=== PATIENT | male | born 1985 | race Asian ===

== ENCOUNTER 2023-07-31 12:14 | Emergency (ER) | payer SELFPAY ==
[2023-07-31 12:16] VITALS: BP 138/106
--- NOTE | 2023-07-31 12:40 | ED.GENMED ---
History of Present Illness
<Liliana Vail PA-C - Last Filed: 07/31/23 21:19>
General
Chief Complaint: Skin Surface Trauma
Source: patient
Exam Limitations: none
Time Seen by Provider: 07/31/23 12:39
Nursing documentation reviewed up to this point in time: agreed with
Travel History
Have you had any contact with someone who has COVID-19?: No
Do you have any symptoms of coronavirus? Fever > 100 degrees, chills, cough, shortness of breath, sore throat, loss of taste or smell, muscle aches, or headache?: No
History of Present Illness
History of Present Illness:
38-year-old male with past medical history of alcohol use disorder presenting to the emergency department today with left elbow pain after falling out of bed. States that initially after fall, he had no pain and felt well. He states that he then
started to notice pain two days later. He also states that his elbow has been red and swollen and draining white material. Patient states that any movement of his arm makes the pain worse. He denies fevers or chills, nausea or vomiting.
Past History
<Liliana Vail PA-C - Last Filed: 07/31/23 21:19>
Past History
ED Past Medical History: Seizures and Other (Chronic alcohol abuse, Pancreatitis,)
ED Past Surgical History: None
Social History
Tobacco: Non-smoker
Alcohol: Binge drinker
Drug: None
Personal: Single
Living: with family
Employment: Not employed
Family History
Family History: Unable to obtain
Review of Systems
<Liliana Vail PA-C - Last Filed: 07/31/23 21:19>
Review of Systems
All Other Systems: ROS reviewed and negative except as documented in HPI and ROS
Phy Exam
<Liliana Vail PA-C - Last Filed: 07/31/23 21:19>
Physical Exam
Physical Exam:
Vitals: vital signs stable
General: patient is well appearing and is in no acute distress
Skin: warm and dry, 2.5 cm palpable abscess with induration located just distal to the left olecranon process
Peripheral Vascular: intact left radial and ulnar pulses, cap refill <2 seconds in left upper extremity
Cardiac: regular rate
Pulm: normal respiratory effort
Musculoskeletal: patient has full range of motion of b/l upper extremities
Course
<Liliana Vail PA-C - Last Filed: 07/31/23 21:19>
Orders/Labs/Results
Orders:
Orders
07/31/23 13:27
Ibuprofen [Motrin] 600 mg PO NOW STA
07/31/23 13:34
Ibuprofen [Motrin] 600 mg .ROUTE .STK-MED ONE
Vital Signs
Initial and Last Documented VS:
Initial Vital Signs
Temp Pulse Resp BP Pulse Ox
98.0 F 95 18 138/106 99
07/31/23 12:16 07/31/23 12:16 07/31/23 12:16 07/31/23 12:16 07/31/23 12:16
Last Documented Vital Signs
Temp Pulse Resp BP Pulse Ox
98.0 F 95 18 138/106 99
07/31/23 12:16 07/31/23 12:16 07/31/23 12:16 07/31/23 12:16 07/31/23 12:16
<Stone Logan DO - Last Filed: 07/31/23 13:38>
Orders/Labs/Results
Orders:
Orders
07/31/23 13:27
Ibuprofen [Motrin] 600 mg PO NOW STA
07/31/23 13:34
Ibuprofen [Motrin] 600 mg .ROUTE .STK-MED ONE
Vital Signs
Initial and Last Documented VS:
Initial Vital Signs
Temp Pulse Resp BP Pulse Ox
98.0 F 95 18 138/106 99
07/31/23 12:16 07/31/23 12:16 07/31/23 12:16 07/31/23 12:16 07/31/23 12:16
Last Documented Vital Signs
Temp Pulse Resp BP Pulse Ox
98.0 F 95 18 138/106 99
07/31/23 12:16 07/31/23 12:16 07/31/23 12:16 07/31/23 12:16 07/31/23 12:16
Procedures
<Liliana Vail PA-C - Last Filed: 07/31/23 21:19>
Incision/Drainage/Joint Aspiration
Left Arm:
Anethesia: 1% Lidocaine with Epi
Preparation: cleaned with Betadine
Type of procedure: incise and drain
Nature of site: abscess
Description of abscess: less than 3cm, involved incision and drainage
How much fluid was obtained?: scant amount
Fluid description: purulent and bloody
Treatment: left open for drainage and bandaid applied
<THOMAS Dumont Last Filed: 07/31/23 21:19>
MDM/Problems Addressed
Differential Diagnosis Includes:
ddx simple cutaneous abscess/folliculitis, cellulitis, erysipelas,
MDM/Problems Addressed:
abscess
Chronic conditions affecting care:
alcoholism
<THOMAS Dumont Last Filed: 07/31/23 21:19>
*Pulse Oximetry
Patient hypoxic: no
*Critical Care Note
Total Time (30-74mins, 75-104mins- exclusive of procedures): Not Applicable
Data Reviewed
Review of Other/Old Records Reveals: Records (reviewed ED physician documentation from 05/31/23, ER physician documentation from 11/09/22)
Prescriptions/Medications Considered But Not Given:
Considered antibiotics however abscess was <5 cm, uncomplicated, and present in an immunocompetent host
<Liliana Vail PA-C - Last Filed: 07/31/23 21:19>
Patient Management
Escalation/DeEscalation of care consider admission/obs:
38 y/o male presenting today with left arm pain. Simple cutaneous abscess present on exam. No systemic signs or symptoms. Incision and drainage performed, patient tolerated procedure well. Small amount of pus expressed. Patient frequently requesting
percocet and other narcotic medications, explained to patient why these are not indicated at this time, recommended motrin and tylenol. Patient stable for discharge.
ED Attending Note
<Liliana Vail PA-C - Last Filed: 07/31/23 21:19>
-
Portions of this chart may have been created with voice recognition software.� Occasional wrong word or��sound alike� substitutions may have occurred due to the inherent limitations of voice recognition software.
<Stone Logan, - Last Filed: 07/31/23 13:38>
ED Attending Note
Patient seen and examined by attending physician: Yes
I performed the substantive portion of visit, reviewed & personally made and approve the management plan that is documented in note by myself or ALEXIA.: Yes
ED Attending Note:
I agree with vitor note
Left arm has an area of erythema and tenderness below the olecranon over the proximal dorsal forearm. There is some fluctuance. Consistent with an cutaneous abscess
Plan is to I&D
Discharge Plan
Departure
Patient Disposition: Home (Routine Discharge)
Date of Disposition: 07/31/23
Time of Disposition: 13:47
Patient with high blood pressure during this ER visit?: Yes
Condition: Good
Discharge Problem:
Abscess
Instructions: Abscess Incision and Drainage (DC)
Prescriptions:
No Action
zolpidem 10 mg Tablet
10 mg PO HS
Patient Comments:
05/30/22: Per PDMP, last filled 05/05/22 #30 for 30 days. (previous fills on 04/08/22, 03/12/22, 02/13/22). Pt states he ran out of Zolpidem a few days ago and is not due for a refill until 06/02/22.
levetiracetam [Keppra] 500 mg tablet
500 mg PO BID Qty: 60 0RF
pantoprazole [Protonix] 40 mg Tablet,Delayed Release (Dr/Ec)
40 mg PO DAILY
levofloxacin 500 mg tablet
500 mg PO DAILY Qty: 5 0RF
oxycodone-acetaminophen [Percocet] 5-325 mg tablet
1 tab PO Q8H PRN (Reason: pain) Qty: 7 0RF
oxycodone-acetaminophen [Percocet] 5-325 mg tablet
1 tab PO Q6HPRN PRN (Reason: pain) Qty: 6 0RF
Referrals:
íVctor Randhawa MD [Family Provider] -
Activity Restrictions/Additional Instructions:
Please keep the wound clean and dry for the next 24 hours, after 24 hours, please clean the wound with mild soap and water, dry the wound, and change dressing once daily. You can expect drainage from the wound in the next coming days.
For pain control, you can apply warm compresses and take Tylenol and Motrin. The compress will also help promote drainage.
Please return the emergency department should you develop a fever of 100.4 or higher, develop a rash over your body, develop confusion, increasing pain/edema surrounding the wound, or other concerning signs or symptoms.
Please follow-up with your PCP.
Interventions
Interventions:
*Risk Screen - Suicide Last Done: 07/31/23 13:43
*General Assessment Last Done: 07/31/23 13:43
*Neglect/Abuse Screening Last Done: 07/31/23 13:43
ED- Fall Risk Assessment Last Done: 07/31/23 14:14
*ED COVID-19 Vaccine History Last Done: 07/31/23 13:43
*Nursing Disposition Last Done: 07/31/23 14:14
ED-Musculoskeletal Assessment Last Done: 07/31/23 13:43
ED- Neurological Assessment Last Done: 07/31/23 13:43
ED-Skin Assessment Last Done: 07/31/23 13:43
Discharge Date and Time
Discharge Date/Time: 07/31/23 14:15
[2023-07-31] MEDS: MOTRIN 600 MG PO (13:35)
== END 2023-07-31 14:15 | disposition home or self-care (01) ==
LOC: EMR 12:14
PROVIDERS: EMERGENCY PHYSICIAN Emergency Medicine; FAMILY PHYSICIAN Internal Medicine
DX: L02.414 Cutaneous abscess of left upper limb (principal); W06.XXXA Fall from bed, initial encounter
CPT/HCPCS: 99282; 10060